=== PATIENT | male | born 1965 | race Caucasian/White ===

== ENCOUNTER → 2018-07-22 | Day surgery (SDC) | payer OTHER ==
[2018-07-19 11:45] LABS: BASOPHILS % 0.4 % (0.0-1.0); EOSINOPHILS # (AUTO) 0.2 (0.0-0.4); HEMOGLOBIN 15.5 g/dL (14.0-18.0); LYMPHOCYTES # (AUTO) 1.9 (1.0-3.2); LYMPHOCYTES % 23.2 % (18.0-39.1); MEAN CORPUSCULAR HEMOGLOBIN 28.8 pg (28-32); MEAN CORPUSCULAR HGB CONC 34.4 g/dL (31-35); MEAN CORPUSCULAR VOLUME 83.6 fL (81-99); MONOCYTES # (AUTO) 0.4 (0.2-0.8); MONOCYTES % 5.2 % (4.4-11.3); NEUTROPHILS # (AUTO) 5.6 (2.1-6.9); PLATELET COUNT 156 x10e3/uL (140-360); RED BLOOD COUNT 5.38 x10e6/uL (4.3-5.7); RED CELL DISTRIBUTION WIDTH 14.1 % (11.7-14.4)
[2018-07-19 12:13] LABS: ANION GAP 13.2 mmol/L (8-16); CALCIUM 9.2 mg/dL (8.4-10.2); CREATININE, SERUM 1.45 mg/dL (0.72-1.25); POTASSIUM 4.2 mmol/L (3.5-5.1)
--- NOTE | 2018-07-19 12:24 | Diagnostic Imaging Report ---
EXAMINATION: PA and lateral views of the chest. COMPARISON: None CLINICAL HISTORY: Preoperative evaluation for foot surgery DISCUSSION: Lines/tubes: None. Lungs: The lungs are well inflated and clear. No pneumonia or pulmonary edema. Pleura: No pleural effusion or pneumothorax. Heart and mediastinum: The cardiomediastinal silhouette is normal. Bones and soft tissues: No acute bony abnormalities. IMPRESSION: No acute cardiopulmonary abnormalities. Signed by: Dr. Rory Hernandez M.D. on 07/19/2018 12:20 PM
[~2018-07-22] MED LIST: BUPIVACAINE HCL 0.5% 10ML MPF VIAL INJ ONE; BUPIVACAINE HCL 0.5% INJ 30 ML VIAL INJ ONE; CEFAZOLIN SOD 2 GM/D5W 50ML 50 ML IV ONE; DEXAMETHASONE SOD PHOS INJ 4 MG/ML VIAL ONE; FENTANYL CITRATE/PF 100MCG/2 ML INJ ONE; KETOROLAC TROMETHAMINE 30 MG/ML VIAL ONE; LIDOCAINE HCL 2% LOCAL INJ 5 ML SDV VIAL INJ ONE; MIDAZOLAM HCL 2 MG/2 ML VIAL ONE; MUPIROCIN 2% OINT 22 GM TUBE ONE; ONDANSETRON HCL INJ 2 MG/ML VIAL ONE; PROPOFOL IV EMULSION 10 MG/ML 20 ML VIAL ONE; SEVOFLURANE INHAL SOLN 250 ML PEN BTL ONE
--- OUTSIDE RECORDS SUMMARY | 2018-07-22 06:11 | XMS REPORT ---
Author [facility] Address Unknown Phone Unavailable Care Team Providers Care Laborer Heading Name Role Phone VALERIE ALVAREZ Unavailable Unavailable Problems This patient has no known problems. Allergies, Adverse Reactions, Alerts This patient has no known allergies or adverse reactions. Medications This patient has no known medications. Results Test Description Test Time Test Comments Text Results Atomic Results Result Comments CHEST 2 VIEWS 2018-07-19 12:20:00 [place] [address] Patient Name: NOHEMI LOO MR #: [id number] : 1965 Age/Sex: 53/M Req #: [id number] Adm Physician: Ordered by: VALERIE ALVAREZ DPM Report #: [id number] Location: OR Room/Bed: Procedure: [id number] DX/CHEST 2 VIEWS Exam Date: 07/19/18 Exam Time: 1200 REPORT STATUS: Signed EXAMINATION: PA and lateral views of the chest. COMPAR RUI: None CLINICAL HISTORY: Preoperative evaluation for foot surgery DISCUSSION: Lines/tubes: None. Lungs: The lungs are well inflated and clear. No pneumonia or pulmonary edema. Pleura: No pleural effusion or pneumothorax. Heart and mediastinum: The cardiomediastinal silhouette is normal. Bones and soft tissues: No acute bony abnormalities. IMPRESSION: No acute cardiopulmonary abnormalities. Signed by: Dr. Everardo Jackson M.D. on 07/19/2018 12:20 PM Dictated By: EVERARDO JACKSON MD 1220 Transcribed By: ARYA on 07/19/180 COPY TO: VALERIE ALVAREZ DPM
[2018-07-22 11:45] VITALS: BP 127/75
--- NOTE | 2018-07-25 13:44 | Operative Report ---
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 TITLE OF OPERATION: Fusion of the interphalangeal joint of the hallux of the right foot. ANESTHESIA: General endotracheal. HEMOSTASIS: Right thigh tourniquet at 350 mmHg. PROCEDURE IN DETAIL: The patient was taken to the operating room in a mildly sedated state and placed upon the operating table in the supine position. Following induction of general anesthetic, the right lower extremity was elevated to 60 degrees to exsanguinate before inflating the pneumatic thigh tourniquet at 350 mmHg to create hemostasis. The right lower extremity was placed upon the operating table prior to performing the following procedure: Procedure #1: Fusion of the interphalangeal joint of the right foot. The joint was dissected free and noted to be significantly contracted. The base of the distal phalanx as well as the head of the proximal phalanx had arthritic cartilage, which was resected. This digit was in contracture as well as dislocation as well. The removal facilitated an easy reapposition of the bone, which was fixated with K-wires temporarily and then ultimately with robyn. The robyn were in place and excellent compression noted. The area was irrigated with copious amounts of sterile saline solution. K-wires were removed. Deep closure was 3-0 Vicryl, subcutaneous closure 4-0 Vicryl and skin closure 4-0 nylon. The areas of surgery were dressed in the appropriate mildly compressive dressing. Release of the pneumatic thigh tourniquet showed a normal hyperemic flush to all digits of the right foot. Job#: [id number]
== END | disposition home or self-care (01) ==
LOC: OR 06:09
PROVIDERS: ATTEND Podiatrist Foot Surgery
DX: M19.071 Primary osteoarthritis, right ankle and foot (principal); M24.574 Contracture, right foot; Z01.810 Encounter for preprocedural cardiovascular examination; Z01.812 Encounter for preprocedural laboratory examination; Z01.818 Encounter for other preprocedural examination
CPT/HCPCS: 28755; 36415; 71046; 76001; 80048; 85025; 93005; J0690; J1100; J1885; J2001; J2250; J2405; J2704; C1713